=== PATIENT | male | born 1960 | race Caucasian/White ===

== ENCOUNTER 2016-08-29 00:51 | Inpatient (IN) | payer MEDICARE ==
--- NOTE | 2016-08-29 01:20 | ED ---
I, Oh,Soohjason, scribed for Jason Miles MD on 08/29/16 at 0104 . Altered Mental Status - HPI Summary HPI Summary: HPI limited due to pt being poor historian. This 56 y/o male presents to ED via ambulance from [facility] for AMS this evening. Pt reports that he was evaluated in [place] "for crazies ". PMHx includes known bipolar, and pt is reported to have been awake for "a few days". He is also reported to have had violent episodes. Pt is ambulatory in [facility] and [facility], but is poor historian. Pt is unable to provide if he has been taking his medications or not. - History Of Current Complaint Stated Complaint: XFER FROM [facility] Time Seen by Provider: 08/29/16 00:55 Hx Obtained From: Patient, EMS, Medical Records Timing: Constant Severity Initially: Moderate Severity Currently: Moderate - Allergies/Home Medications Allergies/Adverse Reactions: Allergies Allergy/AdvReac Type Severity Reaction Status Date / Time No Known Allergies Allergy Verified 06/10/14 14:41 PMH/Surg Hx/FS Hx/Imm Hx Psychiatric History: Reports: Hx Bipolar Disorder - Surgical History Surgery Procedure, Year, and Place: b/l inguinal hernia repairs, with right sided mesh - Family History Known Family History: Negative: Cardiac Disease - Social History Alcohol Use: Occasionally Hx Substance Use: No Substance Use Type: Reports: None Hx Tobacco Use: Yes Smoking Status (MU): Light Every Day Tobacco Smoker Review of Systems Negative: Fever Neurological: Other - Reported AMS Negative: Anxious, Depressed All Other Systems Reviewed And Are Negative: Yes Physical Exam Triage Information Reviewed: Yes Vital Signs On Initial Exam: Initial Vitals Temp Pulse Resp BP Pulse Ox 98.1 F 76 16 122/79 94 08/29/16 00:55 08/29/16 00:55 08/29/16 00:55 08/29/16 00:55 08/29/16 00:55 Vital Signs Reviewed: Yes Appearance: Positive: No Pain Distress, Thin Skin: Positive: Warm Head/Face: Positive: Normal Head/Face Inspection Eyes: Positive: CELY ENT: Positive: Hearing grossly normal Neck: Positive: Supple Respiratory/Lung Sounds: Positive: Clear to Auscultation, Breath Sounds Present Cardiovascular: Positive: RRR Abdomen Description: Positive: Nontender, Soft Bowel Sounds: Positive: Present Musculoskeletal: Positive: Strength/ROM Intact Neurological: Positive: Alert, Oriented to Person Place, Time Diagnostics - Vital Signs Vital Signs Temp Pulse Resp BP Pulse Ox 08/29/16 00:55 98.1 F 76 16 122/79 94 - Laboratory Lab Statement: Any lab studies that have been ordered have been reviewed, and results considered in the medical decision making process. Altered Mental Statu Course/Dx - Course Assessment/Plan: This 56 y/o male presents to ED with reported AMS from [facility] and further medical evaluation at [facility]. Pt is reported to have had violent episodes to staffs. Pt himself reports that he was being evaluated at [facility] for "crazies". Medical records and bloodwork results from [facility] indicates that pt is cleared for MHE. - Diagnoses Discharge Diagnoses: Bipolar disorder - Provider Notifications Discussed Care Of Patient With: MHU. Medically cleared for MHE at 0100 AM Discharge - Discharge Plan Condition: Stable Disposition: OTHER Discharge Disposition Comment: signed out pending mhu eval The documentation as recorded by the Paresh calle Soohyun accurately reflects the service I personally performed and the decisions made by me, Jason Miles MD.
[2016-08-29] MEDS ORDERED: Nicotine Inhaler* 10 MG AMP INH ONE (01:29)
[2016-08-29] MEDS ORDERED: Mouth Piece, Nicotine* 1 EACH CARTRIDGE ONE (01:36)
[2016-08-29] MEDS ORDERED: Al Hydrox/Mg Hydrox/Simet LIQ* 30 ML UDC PO PRN (10:40)
[2016-08-29] MEDS ORDERED: Acetaminophen TAB* 325 MG PO PRN (10:40)
[2016-08-29] MEDS ORDERED: Nicotine GUM* 2 MG PO PRN (10:40)
--- NOTE | 2016-08-29 14:27 | ED ---
Progress - Progress Note Progress Note: ADMIT TO MHU STABLE - Consult/PCP Time Called: 01:46 Course/Dx - Diagnoses Provider Diagnoses: Bipolar disorder - Provider Notifications Discussed Care Of Patient With: MHU. Medically cleared for MHE at 0100 AM
[2016-08-29] MEDS: LORazepam TAB(*) 1 MG PO PRN (22:04)
[2016-08-29] MEDS: Haloperidol TAB* 5 MG PO PRN (22:04)
[2016-08-30] MEDS ORDERED: Mouth Piece, Nicotine* 1 EACH CARTRIDGE ONE (08:52)
[2016-08-30] MEDS: Nicotine PATCH 21 MG/24 HR* PATCH TRANSDERM SCH (08:53)
[2016-08-30] MEDS: Nicotine Inhaler* 10 MG AMP INH PRN (08:53)
[2016-08-30] MEDS: Vitamin THERAPEUTIC TAB PO SCH (08:53)
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
[2016-08-30] MEDS: Nicotine Patch Removal NOTE PATCH OFF SCH (19:58)
[2016-08-30] MEDS ORDERED: QUEtiapine TAB* 100 MG PO SCH (21:00)
[2016-08-31] MEDS: Nicotine Inhaler* 10 MG AMP INH PRN (02:03)
[2016-08-31] MEDS: Vitamin THERAPEUTIC TAB PO SCH (07:34)
[2016-08-31] MEDS: Nicotine PATCH 21 MG/24 HR* PATCH TRANSDERM SCH (09:52)
--- NOTE | 2016-08-31 14:15 | PN ---
Subjective - Subjective Service Type: 60592 Hosp care 25 min moderate complexity Subjective: Owen reports sustained remission of psychotic concerns regarding Satan and bombs, but still showing some signs of continued run of psychotic illness, most concerning poor sleep. Denies any active physical complaints. Asking for discharge. Agrees to family meeting with parents, sister to inform us as to his approach toward usual level of functioning versus continued impairment. Objective - Appearance Appearance: Well Developed/Nourished Dysmorphic Features: No Hygiene: Normal Grooming: Disheveled - Behavior Psychomotor Activities: Normal Exhibits Abnormal Movement: No - Attitude and Relatedness Attitude and Relatedness: Cooperative Eye Contact: Fair - Speech Quality: Unpressured Latencies: Normal Quantity: Appropriate - Mood Patient's Decription of Mood: "Good" - Affect Observed Affect: Fair Affect Consistent with: Euthymia - Thought Process Patient's Thought Process: Coherent, Goal Directed Thought Content: No Passive Wish, No Suicidal Planning, No Homicidal Ideation, No Paranoid Ideation - Sensorium Experiencing Hallucinations: No, Sensorium is Clear Type of Hallucinations: Visual: No, Auditory: No, Command: No - Level of Consciousness Level of Consciousness: Alert Orientation: Yes Intact, Yes Orientated to Time, Yes Orientated to Place, Yes Orientated to Person - Impulse Control Impulse Control: Intact - Insight and Judgement Insight and Judgement: Poor - Group Participation Particating in Group Activities: Yes - Medication Management Medication Management Adherence: Yes Assessment - Assessment Merits Inpatient Hospitalization: For Stabilization, Consolidate Improvements, For Discharge Planning Inpatient DSM-IV Dx: Schizophrenia Clinical Impression: Mr. Bundy is a 56-year-old man who reports a history of diagnosis with schizophrenia, but by his current account zero compliance with aftercare. He reports that nevertheless for the past ten years he has been stable. He reports onset of his current psychotic decompensation following two months of sleep deprivation. I have discussed with him medication alternatives. He is averse to any medications, but has ultimately agreed to a trial of Seroquel which may be particularly helpful with regard to the sleep deprivation and may at higher doses also be effective against psychosis. I have also talked with him about the possibility of a trial of Risperdal if the Seroquel does not ultimately lead to clearing of his psychosis. 28.17 Although he reports remission of PI/delusions, he is still not sleeping well. Will ask family to come in to tell us how near to his baseline he is. Will increase Seroquel to 200 mg tonight. Plan - Plan Treatment Plan: Name: OWEN BUNDY Birthdate: 1960 [id number] Increase Seroquel to 200 mg HS. Monitor MS and safety. Encourage groups/ milieu. Aftercare to be arranged. Medications: Current Medications Acetaminophen (Tylenol Tab*) 650 mg PO Q4H PRN PRN Reason: for pain; or Temp >101 F Al Hydrox/Mg Hydrox/Simethicone (Maalox Plus*) 30 ml PO Q4H PRN PRN Reason: INDIGESTION Haloperidol (Haldol Tab*) 5 mg PO Q6H PRN PRN Reason: AGITATION Last Admin: 08/29/16 22:04 Dose: 5 mg Lorazepam (Ativan Tab(*)) 2 mg PO Q6H PRN PRN Reason: AGITATION/ANXIETY/INSOMNIA Last Admin: 08/29/16 22:04 Dose: 2 mg Multivitamins (Theragran Tab*) 1 tab PO DAILY [facility] Last Admin: 08/31/16 07:34 Dose: 1 tab Nicotine (Nicotine Inhaler*) 10 mg INH Q2H PRN PRN Reason: CRAVING Last Admin: 08/31/16 02:03 Dose: 10 mg Nicotine (Nicotine Patch 21 Mg/24 Hr*) 1 patch TRANSDERM DAILY@0800 [facility] Last Admin: 08/31/16 09:52 Dose: Not Given Nicotine Polacrilex (Nicotine Gum*) 2 mg PO Q2H PRN PRN Reason: CRAVING Pharmacy Profile Note (Nicotine Patch Removal Note*) 1 note PATCH OFF 1999 [facility] Last Admin: 08/30/16 19:58 Dose: Not Given Quetiapine Fumarate (Seroquel Tab*) 100 mg PO BEDTIME [facility] Last Admin: 08/30/16 19:49 Dose: 100 mg - Discharge Plan Discharge Plan: Outpatient Follow Up
[2016-08-31] MEDS: QUEtiapine TAB* 100 MG PO SCH (20:41)
[2016-08-31] MEDS: Nicotine Patch Removal NOTE PATCH OFF SCH (20:41)
[2016-09-01] MEDS: Vitamin THERAPEUTIC TAB PO SCH (09:00)
[2016-09-01] MEDS: Nicotine PATCH 21 MG/24 HR* PATCH TRANSDERM SCH (09:01)
[2016-09-01] MEDS ORDERED: Mouth Piece, Nicotine* 1 EACH CARTRIDGE ONE (11:54)
[2016-09-01] MEDS: Nicotine Inhaler* 10 MG AMP INH PRN ×3 (11:55→19:38)
--- NOTE | 2016-09-01 12:07 | PN ---
Subjective - Subjective Service Type: 76981 Hosp care 35 min high complexity Subjective: Family meeting held with patient, social science instructor Ms Wren, patient's parents, and his [id number] Lorena. Family members expressed concern that given degree of psychosis prior to admission, and their experience with relapse in another family member after what they felt was too brief a hospitalization for treatment of rigoberto, that discharge today would be premature. Cristopher agreed, reluctantly, that he would benefit from staying through the weekend as dose of Seroquel is increased to usual target dose for treatment of rigoberto, 300 mg daily , and for further stabilization with close observation for sustained remission of delusional psychosis and insomnia. 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 Objective - Appearance Appearance: Healthy Appearing Dysmorphic Features: No Hygiene: Normal Grooming: Fairly Well Kept - Behavior Psychomotor Activities: Normal Exhibits Abnormal Movement: No - Attitude and Relatedness Attitude and Relatedness: Well Related Eye Contact: Good - Speech Quality: Unpressured Latencies: Normal Quantity: Appropriate - Mood Patient's Decription of Mood: "Good" - Affect Observed Affect: Good Affect Consistent with: Euthymia - Thought Process Patient's Thought Process: Coherent, Goal Directed Thought Content: No Passive Wish, No Suicidal Planning, No Homicidal Ideation, No Paranoid Ideation - Sensorium Experiencing Hallucinations: No, Sensorium is Clear Type of Hallucinations: Visual: No, Auditory: No, Command: No - Level of Consciousness Level of Consciousness: Alert Orientation: Yes Intact, Yes Orientated to Time, Yes Orientated to Place, Yes Orientated to Person - Impulse Control Impulse Control: Intact - Insight and Judgement Insight and Judgement: Fair - Group Participation Particating in Group Activities: Yes Group Participation Comments: about half of documented groups - Medication Management Medication Management Adherence: Yes Assessment - Assessment Merits Inpatient Hospitalization: For Stabilization, For Ongoing Evaluation, Consolidate Improvements, For Discharge Planning, Pending Safe DC Plan Inpatient DSM-IV Dx: Schizophrenia Clinical Impression: Mr. Bundy is a 56-year-old man who reports a history of diagnosis with schizophrenia, but by his current account zero compliance with aftercare. He reports that nevertheless for the past ten years he has been stable. He reports onset of his current psychotic decompensation following two months of sleep deprivation. I have discussed with him medication alternatives. He is averse to any medications, but has ultimately agreed to a trial of Seroquel which may be particularly helpful with regard to the sleep deprivation and may at higher doses also be effective against psychosis. I have also talked with him about the possibility of a trial of Risperdal if the Seroquel does not ultimately lead to clearing of his psychosis. 2.8.17 Although he reports remission of PI/delusions, he is still not sleeping well. Will ask family to come in to tell us how near to his baseline he is. Will increase Seroquel to 200 mg tonight. 17 Conclusion of family meeting was that Cristopher would stay through weekend to consolidate gains prior to planned Monday discharge, with increased dose Seroquel to target for treatment of rigoberto, 300 mg, tonight. Plan - Plan Treatment Plan: Name: OWEN BUNDY Birthdate: 1960 [id number] Increase Seroquel to 300 mg HS. Monitor MS and safety. Encourage groups/ milieu. [facility]care at [facility] with day programming. Medications: Current Medications Acetaminophen (Tylenol Tab*) 650 mg PO Q4H PRN PRN Reason: for pain; or Temp >101 F Al Hydrox/Mg Hydrox/Simethicone (Maalox Plus*) 30 ml PO Q4H PRN PRN Reason: INDIGESTION Haloperidol (Haldol Tab*) 5 mg PO Q6H PRN PRN Reason: AGITATION Last Admin: 08/29/16 22:04 Dose: 5 mg Lorazepam (Ativan Tab(*)) 2 mg PO Q6H PRN PRN Reason: AGITATION/ANXIETY/INSOMNIA Last Admin: 08/29/16 22:04 Dose: 2 mg Multivitamins (Theragran Tab*) 1 tab PO DAILY [facility] Last Admin: 09/01/16 09:00 Dose: 1 tab Nicotine (Nicotine Inhaler*) 10 mg INH Q2H PRN PRN Reason: CRAVING Last Admin: 09/01/16 11:55 Dose: 10 mg Nicotine (Nicotine Patch 21 Mg/24 Hr*) 1 patch TRANSDERM DAILY@0800 [facility] Last Admin: 09/01/16 09:01 Dose: Not Given Nicotine Polacrilex (Nicotine Gum*) 2 mg PO Q2H PRN PRN Reason: CRAVING Pharmacy Profile Note (Nicotine Patch Removal Note*) 1 note PATCH OFF 1999 [facility] Last Admin: 08/31/16 20:41 Dose: Not Given Quetiapine Fumarate (Seroquel Tab*) 200 mg PO BEDTIME [facility] Last Admin: 08/31/16 20:41 Dose: 200 mg - Discharge Plan Discharge Plan: Outpatient Follow Up Outpatient Program: [facility], including day program
[2016-09-01] MEDS: QUEtiapine TAB* 100 MG PO SCH ×2 (20:11→20:35)
[2016-09-01] MEDS: Nicotine Patch Removal NOTE PATCH OFF SCH (20:12)
[2016-09-02] MEDS: Nicotine Inhaler* 10 MG AMP INH PRN (07:53)
[2016-09-02] MEDS: Vitamin THERAPEUTIC TAB PO SCH (08:39)
--- NOTE | 2016-09-02 08:44 | PN ---
Subjective - Subjective Service Type: 14670 Hosp care 15 min low complexity Subjective: Owen reports with a brief pause to his response that he agrees with stabilizing more fully until planned Monday discharge from the florid psychosis that indicated need for hospitaliztion. He denies any hallucinations, paranoia , dangerous intent/plan. He does present with some odd tonalities to his report of not getting his shoes back and not having his ID band, the latter point he seems to bring up to imply he is not supposed to be a patient here. Objective - Appearance Appearance: Healthy Appearing Dysmorphic Features: No Hygiene: Normal Grooming: Fairly Well Kept - Behavior Psychomotor Activities: Normal Exhibits Abnormal Movement: No - Attitude and Relatedness Attitude and Relatedness: Cooperative Eye Contact: Good - Speech Quality: Unpressured Latencies: Normal Quantity: Terse - Mood Patient's Decription of Mood: "Great" - Affect Observed Affect: Constricted Affect Consistent with: Euthymia - Thought Process Patient's Thought Process: Coherent, Goal Directed, Impoverished Thought Content: No Passive Wish, No Suicidal Planning, No Homicidal Ideation, No Paranoid Ideation - although emotional tone seems to indicate paranoia - Sensorium Experiencing Hallucinations: No, Sensorium is Clear Type of Hallucinations: Visual: No, Auditory: No, Command: No - Level of Consciousness Level of Consciousness: Alert Orientation: Yes Intact, Yes Orientated to Time, Yes Orientated to Place, Yes Orientated to Person - Impulse Control Impulse Control: Intact - Insight and Judgement Insight and Judgement: Impaired - Group Participation Particating in Group Activities: Yes - Medication Management Medication Management Adherence: Yes Assessment - Assessment Merits Inpatient Hospitalization: Consolidate Improvements, For Discharge Planning Inpatient DSM-IV Dx: Schizophrenia Clinical Impression: Mr. Bundy is a 56-year-old man who reports a history of diagnosis with schizophrenia, but by his current account zero compliance with aftercare. He reports that nevertheless for the past ten years he has been stable. He reports onset of his current psychotic decompensation following two months of sleep deprivation. I have discussed with him medication alternatives. He is averse to any medications, but has ultimately agreed to a trial of Seroquel which may be particularly helpful with regard to the sleep deprivation and may at higher doses also be effective against psychosis. I have also talked with him about the possibility of a trial of Risperdal if the Seroquel does not ultimately lead to clearing of his psychosis. 2.8.17 Although he reports remission of PI/delusions, he is still not sleeping well. Will ask family to come in to tell us how near to his baseline he is. Will increase Seroquel to 200 mg tonight. 217 Conclusion of family meeting was that Cristopher would stay through weekend to consolidate gains prior to planned Monday discharge, with increased dose Seroquel to target for treatment of rigoberto, 300 mg, tonight. 09.02.16 Plan for Monday discharge after continued observation over weekend for solidifying gains against florid paranoid psychosis and insomnia preceding admission. Plan - Plan Treatment Plan: Name: OWEN BUNDY Birthdate: 1960 [id number] Continue Seroquel at 300 mg HS. Monitor MS and safety. Encourage groups/ milieu. [facility]care at [facility] with day programming. Medications: Current Medications Acetaminophen (Tylenol Tab*) 650 mg PO Q4H PRN PRN Reason: for pain; or Temp >101 F Al Hydrox/Mg Hydrox/Simethicone (Maalox Plus*) 30 ml PO Q4H PRN PRN Reason: INDIGESTION Haloperidol (Haldol Tab*) 5 mg PO Q6H PRN PRN Reason: AGITATION Last Admin: 08/29/16 22:04 Dose: 5 mg Lorazepam (Ativan Tab(*)) 2 mg PO Q6H PRN PRN Reason: AGITATION/ANXIETY/INSOMNIA Last Admin: 08/29/16 22:04 Dose: 2 mg Multivitamins (Theragran Tab*) 1 tab PO DAILY [facility] Last Admin: 09/01/16 09:00 Dose: 1 tab Nicotine (Nicotine Inhaler*) 10 mg INH Q2H PRN PRN Reason: CRAVING Last Admin: 09/02/16 07:53 Dose: 10 mg Nicotine (Nicotine Patch 21 Mg/24 Hr*) 1 patch TRANSDERM DAILY@0800 [facility] Last Admin: 09/01/16 09:01 Dose: Not Given Nicotine Polacrilex (Nicotine Gum*) 2 mg PO Q2H PRN PRN Reason: CRAVING Pharmacy Profile Note (Nicotine Patch Removal Note*) 1 note PATCH OFF 1999 [facility] Last Admin: 09/01/16 20:12 Dose: Not Given Quetiapine Fumarate (Seroquel Tab*) 200 mg PO BEDTIME [facility] Last Admin: 09/01/16 20:35 Dose: 200 mg - Discharge Plan Discharge Plan: Outpatient Follow Up
[2016-09-02] MEDS: Nicotine PATCH 21 MG/24 HR* PATCH TRANSDERM SCH (09:45)
[2016-09-02] MEDS: Haloperidol TAB* 5 MG PO PRN (15:37)
[2016-09-02] MEDS: LORazepam TAB(*) 1 MG PO PRN (18:20)
[2016-09-02] MEDS: Nicotine Patch Removal NOTE PATCH OFF SCH (19:33)
[2016-09-02] MEDS: QUEtiapine TAB* 100 MG PO SCH (20:35)
[2016-09-03] MEDS: Nicotine PATCH 21 MG/24 HR* PATCH TRANSDERM SCH (09:50)
[2016-09-03] MEDS: Vitamin THERAPEUTIC TAB PO SCH (09:51)
--- NOTE | 2016-09-03 11:44 | PN ---
Subjective - Subjective Service Type: 97232 Hosp care 25 min moderate complexity Subjective: Owen reported today that "I need a cigarette!", which seems to be the primary motivation toward discharge urgently. He also reported feeling frustrated at the outcome of the family meeting in which we decided it made good sense to observe him over the weekend for stability in recovery from an episode of florid psychosis just 2 days earlier. He denied having any physical complaints. He reluctantly agreed he would work to make the most of his remaining 48 hours on the unit. Objective - Appearance Appearance: Healthy Appearing, Thin Framed Dysmorphic Features: No Hygiene: Normal Grooming: Fairly Well Kept - Behavior Psychomotor Activities: Normal Exhibits Abnormal Movement: No - Attitude and Relatedness Attitude and Relatedness: Cooperative Eye Contact: Fair - Speech Quality: Unpressured Latencies: Normal Quantity: Terse - Mood Patient's Decription of Mood: "Good" - Affect Observed Affect: Tense Affect Consistent with: Dysphoria - Thought Process Patient's Thought Process: Coherent, Goal Directed Thought Content: No Passive Wish, No Suicidal Planning, No Homicidal Ideation, No Paranoid Ideation - Sensorium Experiencing Hallucinations: No, Sensorium is Clear Type of Hallucinations: Visual: No, Auditory: No, Command: No - Level of Consciousness Level of Consciousness: Alert Orientation: Yes Intact, Yes Orientated to Time, Yes Orientated to Place, Yes Orientated to Person - Impulse Control Impulse Control: Intact - Insight and Judgement Insight and Judgement: Poor - Group Participation Particating in Group Activities: Yes Group Participation Comments: but left in middle of group today because unable to focus - Medication Management Medication Management Adherence: Yes Assessment - Assessment Merits Inpatient Hospitalization: For Stabilization, Consolidate Improvements, For Discharge Planning Inpatient DSM-IV Dx: Schizophrenia Clinical Impression: Mr. Bundy is a 56-year-old man who reports a history of diagnosis with schizophrenia, but by his current account zero compliance with aftercare. He reports that nevertheless for the past ten years he has been stable. He reports onset of his current psychotic decompensation following two months of sleep deprivation. I have discussed with him medication alternatives. He is averse to any medications, but has ultimately agreed to a trial of Seroquel which may be particularly helpful with regard to the sleep deprivation and may at higher doses also be effective against psychosis. I have also talked with him about the possibility of a trial of Risperdal if the Seroquel does not ultimately lead to clearing of his psychosis. 2.8.17 Although he reports remission of PI/delusions, he is still not sleeping well. Will ask family to come in to tell us how near to his baseline he is. Will increase Seroquel to 200 mg tonight. 2.9.17 Conclusion of family meeting was that Cristopher would stay through weekend to consolidate gains prior to planned Monday discharge, with increased dose Seroquel to target for treatment of rigoberto, 300 mg, tonight. 2..17 Plan for Monday discharge after continued observation over weekend for solidifying gains against florid paranoid psychosis and insomnia preceding admission. 2..17 Reported today that he is seeking discharge with urgency motivated by desire to smoke. Has had difficulty concentrating in group. He is angry but in good behavioral control and in fact reasonable in stating his frustration. Still planning toward Monday discharge if observation through the weekend indicates sustained remission of psychosis with good sleep. Plan - Plan Treatment Plan: Name: OWEN BUNDY Birthdate: 1960 [id number] Continue Seroquel at 300 mg HS. Monitor MS and safety. Encourage groups/ milieu. Aftercare at [facility] with day programming. Medications: Current Medications Acetaminophen (Tylenol Tab*) 650 mg PO Q4H PRN PRN Reason: for pain; or Temp >101 F Al Hydrox/Mg Hydrox/Simethicone (Maalox Plus*) 30 ml PO Q4H PRN PRN Reason: INDIGESTION Haloperidol (Haldol Tab*) 5 mg PO Q6H PRN PRN Reason: AGITATION Last Admin: 09/02/16 15:37 Dose: 5 mg Lorazepam (Ativan Tab(*)) 2 mg PO Q6H PRN PRN Reason: AGITATION/ANXIETY/INSOMNIA Last Admin: 09/02/16 18:20 Dose: 2 mg Multivitamins (Theragran Tab*) 1 tab PO DAILY [facility] Last Admin: 09/03/16 09:51 Dose: 1 tab Nicotine (Nicotine Inhaler*) 10 mg INH Q2H PRN PRN Reason: CRAVING Last Admin: 09/02/16 07:53 Dose: 10 mg Nicotine (Nicotine Patch 21 Mg/24 Hr*) 1 patch TRANSDERM DAILY@0800 [facility] Last Admin: 09/03/16 09:50 Dose: Not Given Nicotine Polacrilex (Nicotine Gum*) 2 mg PO Q2H PRN PRN Reason: CRAVING Pharmacy Profile Note (Nicotine Patch Removal Note*) 1 note PATCH OFF 1999 [facility] Last Admin: 09/02/16 19:33 Dose: Not Given Quetiapine Fumarate (Seroquel Tab*) 200 mg PO BEDTIME [facility] Last Admin: 09/02/16 20:35 Dose: 200 mg - Discharge Plan Discharge Plan: Outpatient Follow Up
[2016-09-03] MEDS ORDERED: Mouth Piece, Nicotine* 1 EACH CARTRIDGE ONE (13:49)
[2016-09-03] MEDS: Nicotine Inhaler* 10 MG AMP INH PRN ×3 (13:50→22:39)
[2016-09-03] MEDS: Nicotine Patch Removal NOTE PATCH OFF SCH (20:48)
[2016-09-03] MEDS: QUEtiapine TAB* 100 MG PO SCH (21:07)
[2016-09-04] MEDS: Nicotine Inhaler* 10 MG AMP INH PRN ×8 (02:11→22:26)
[2016-09-04] MEDS: LORazepam TAB(*) 1 MG PO PRN ×2 (02:25→23:57)
[2016-09-04] MEDS: Vitamin THERAPEUTIC TAB PO SCH (09:35)
[2016-09-04] MEDS: Nicotine PATCH 21 MG/24 HR* PATCH TRANSDERM SCH (09:36)
[2016-09-04] MEDS: QUEtiapine TAB* 100 MG PO SCH (20:00)
[2016-09-04] MEDS: Nicotine Patch Removal NOTE PATCH OFF SCH (21:14)
[2016-09-05 08:07] VITALS: BP 118/65
[2016-09-05] MEDS: Nicotine Inhaler* 10 MG AMP INH PRN ×2 (08:14→10:35)
[2016-09-05] MEDS ORDERED: Mouth Piece, Nicotine* 1 EACH CARTRIDGE ONE (08:14)
[2016-09-05] MEDS: Nicotine PATCH 21 MG/24 HR* PATCH TRANSDERM SCH (08:14)
[2016-09-05] MEDS: Vitamin THERAPEUTIC TAB PO SCH (08:14)
--- NOTE | 2016-09-05 10:24 | DS ---
Subjective - Subjective Service Types: [id number] [facility] Day Mgmt simple under 30 min Discharge Date: 09/05/16 Subjective: Pedro reports full sustained remission of the symptoms of paranoid psychosis that led to his admission: he no longer has concerns about bombs or Satan. He is primarily interested in getting home so that he can bowl with friends. He is unsure if he still has a job at the [employer]. He denies any active psychosis, dangerous intent or plan, or mood disturbance, reporting that his mood is very good, and he is looking forward to planned activities. Objective - Appearance Appearance: Healthy Appearing, Thin Framed Dysmorphic Features: No Hygiene: Normal Grooming: Fairly Well Kept - Behavior Psychomotor Activities: Normal Exhibits Abnormal Movement: No - Attitude and Relatedness Attitude and Relatedness: Cooperative Eye Contact: Good - Speech Quality: Unpressured Latencies: Normal Quantity: Appropriate - Mood Patient's Decription of Mood: "Good" - Affect Observed Affect: Fair Affect Consistent with: Euthymia - Thought Process Patient's Thought Process: Coherent, Goal Directed Thought Content: No Passive Wish, No Suicidal Planning, No Homicidal Ideation, No Paranoid Ideation - Sensorium Experiencing Hallucinations: No, Sensorium is Clear Type of Hallucinations: Visual: No, Auditory: No, Command: No - Level of Consciousness Level of Consciousness: Alert Orientation: Yes Intact, Yes Orientated to Time, Yes Orientated to Place, Yes Orientated to Person - Impulse Control Impulse Control: Intact - Insight and Judgement Insight and Judgement: Fair - Group Participation Particating in Group Activities: Yes Group Participation Comments: but only large groups like evening and community meeting - Medication Management Medication Management Adherence: Partial Treatment Course & Assessment Clinical Course & Impression: Mr. Garcia is a 56-year-old man who reports a history of diagnosis with schizophrenia, but by his current account zero compliance with aftercare. He reports that nevertheless for the past ten years he has been stable. He reports onset of his current psychotic decompensation following two months of sleep deprivation. I have discussed with him medication alternatives. He is averse to any medications, but has ultimately agreed to a trial of Seroquel which may be particularly helpful with regard to the sleep deprivation and may at higher doses also be effective against psychosis. 2.8.17 Although he reports remission of PI/delusions, he is still not sleeping well. Will ask family to come in to tell us how near to his baseline he is. Will increase Seroquel to 200 mg tonight. 09.01.16 Conclusion of family meeting was that Cristopher would stay through weekend to consolidate gains prior to planned Monday discharge, with increased dose Seroquel to target for treatment of rigoberto, 300 mg, tonight. 09.03.16 Reported today that he is seeking discharge with urgency motivated by desire to smoke. Has had difficulty concentrating in group. He is angry but in good behavioral control and in fact reasonable in stating his frustration. Still planning toward Monday discharge if observation through the weekend indicates sustained remission of psychosis with good sleep. 09.05.16 Pedro is cleared for discharge. Target symptoms of paranoia and insomnia have resolved. He reports sustained remission of paranoid concerns about bombs and Satan. He has been sleeping about 5 - 6 hours nightly, which he reports is a marked improvement over the less than 2 hours nightly prior to admission. He has at no time during this admission stated any intent or plan to harm himself or others. He did push his father when concerned about a bomb in his sister's car, but the concern about bombs has remitted and he states he has no violent intentions now that his psychotic break has resolved. He did comply with medications partially, choosing to take only 200 mg of the 300 mg Seroquel that was offered to him. He agrees to continue to take 200 mg Seroquel nightly after discharge. Aftercare has been arranged at [facility] with intake appointment today at 2 pm. He is bright and future-oriented, looking forward to bowling with friends. He does not wish to stop smoking despite my recommendation that he stop. His family will be picking him up to get him to aftercare this afternoon. Merits Inpatient Hospitalization: No Clear for Discharge: Adequate Clinical Respons, Acceptable Safety Profile, Low Utility of Inpt Care Inpatient DSM-IV Dx: Schizophrenia - [place] III Medical Illness: no active issues - [place] IV Stressors: limited finances, no car Family: supportive family Primary Support Group: family - [place] V EUH-Kzctep-Ciafm: 55 Estimate of Highest-Past Year: 60 Discharge Planning - Discharge Planning Discharge Plan: Outpatient Follow Up Outpatient Program: [facility] Recommendations for Continuing Care: Medication Management, Psychotherapy, Routine Metabolic Monitoring Medications: Quetiapine Fumarate (Seroquel Tab*) 200 mg PO BEDTIME [facility] Last Admin: 09/04/16 20:00 Dose: 200 mg Discharge Planning: Prescriptions provided for discharge [x] Yes [] No Follow up care details as per social work arrangements. Patient response to discharge plan: [x] eager for discharge [x] agreeable with discharge plan [] ambivalent about discharge [] disagrees with discharge today
== END 2016-09-05 11:00 | disposition home or self-care (01) | DRG 885 ==
LOC: ED 00:51 → BSU 14:50
PROVIDERS: ADMIT Psychiatry & Neurology Psychiatry; ATTEND Psychiatry & Neurology Psychiatry
DX: F20.0 Paranoid schizophrenia (principal); F17.210 Nicotine dependence, cigarettes, uncomplicated
CPT/HCPCS: 99222; 99231; 99232; 99233; 99238; A9270-GY

== ENCOUNTER 2016-09-08 01:37 | Inpatient (IN) | payer MEDICARE ==
[2016-09-08] MEDS ORDERED: QUEtiapine TAB* 100 MG ONE (03:14)
[2016-09-08] MEDS ORDERED: Nicotine Inhaler* 10 MG AMP ONE (03:25)
[2016-09-08] MEDS ORDERED: Mouth Piece, Nicotine* 1 EACH CARTRIDGE ONE (03:25)
[2016-09-08 03:32] LABS: Acetaminophen < 15 mcg/mL; Alcohol < 10 mg/dL (<10); Hematocrit 44 % (42-52); Hemoglobin 14.7 g/dl (14.0-18.0); Mean Corpuscular HGB Conc 33 g/dl (31-36); Mean Corpuscular Hemoglobin 34 pg (27-31); Mean Corpuscular Volume 102 fL (80-94); Mean Platelet Volume 7 um3 (7.4-10.4); Red Blood Count 4.31 10^6/ul (4.0-5.4); Red Cell Distribution Width 14 % (10.5-15); Salicylate < 2.50 mg/dL (<30); White Blood Count 5.4 10^3/ul (3.5-10.8)
[2016-09-08 03:33] LABS: ALT 23 U/L (7-52); AST 44 U/L (13-39); Albumin 4.7 g/dL (3.2-5.2); Alkaline Phosphatase 63 U/L (34-104); Anion Gap 6 mmol/L (2-11); Blood Urea Nitrogen 18 mg/dL (6-24); CO2 Carbon Dioxide 28 mmol/L (22-32); Calcium 9.8 mg/dL (8.6-10.3); Chloride 101 mmol/L (101-111); EGFR African American 99.4 (>60); EGFR Non-African American 77.3 (>60); Globulin 2.7 g/dL (2-4); Glucose 92 mg/dL (70-100); Potassium 4.3 mmol/L (3.5-5.0); Sodium 135 mmol/L (133-145); Total Protein 7.4 g/dL (6.4-8.9)
[2016-09-08 03:35] LABS: TSH (Thyroid Stimulating Horm) 8.68 mcIU/mL (0.34-5.60)
--- NOTE | 2016-09-08 05:29 | ED ---
Latrell Pennington Billy, scribed for Jason Miles MD on 09/08/16 at 0149 . Psychiatric Complaint - HPI Summary HPI Summary: Patient is a 56 year-old male coming to [facility] for M[facility]. He was recently discharged with psychosis several days ago, but he has not been taking his medications. Per family, patient is not behaving normally. - History Of Current Complaint Chief Complaint: EDMentalHealth Time Seen by Provider: 09/08/16 01:41 Hx Obtained From: Family/Operations Support Specialist Onset/Duration: Gradual Onset, Lasting Days, Still Present Timing: Constant Severity Initially: Moderate Severity Currently: Moderate Aggravating Factor(s): Medication Non-compliance Alleviating Factor(s): Nothing Associated Signs And Symptoms: Positive: Paranoid Behavior Related History: Positive For: Prior Psychiatric Issues - Allergies/Home Medications Allergies/Adverse Reactions: Allergies Allergy/AdvReac Type Severity Reaction Status Date / Time No Known Allergies Allergy Verified 08/29/16 23:13 PMH/Surg Hx/FS Hx/Imm Hx Psychiatric History: Reports: Hx Inpatient Treatment, Hx Community Mental Health Tx, Hx Bipolar Disorder - Surgical History Surgery Procedure, Year, and Place: b/l inguinal hernia repairs, with right sided mesh Infectious Disease History: Denies: Traveled Outside the [place] in Last 30 Days - Family History Known Family History: Negative: Cardiac Disease - Social History Alcohol Use: Daily Hx Substance Use: No Substance Use Type: Reports: None Hx Tobacco Use: Yes Smoking Status (MU): Light Every Day Tobacco Smoker Type: Cigarettes Amount Used/How Often: less than 10 cigs per day for the last 30 days. Have You Smoked in the Last Year: Yes Review of Systems Negative: Fever Positive: Other - psychosis All Other Systems Reviewed And Are Negative: Yes Physical Exam Triage Information Reviewed: Yes Vital Signs On Initial Exam: Initial Vitals Temp Pulse Resp BP Pulse Ox 98.2 F 78 12 134/78 94 09/08/16 01:56 09/08/16 01:56 09/08/16 01:56 09/08/16 01:56 09/08/16 01:56 Vital Signs Reviewed: Yes Appearance: Positive: Well-Appearing Skin: Positive: Warm Head/Face: Positive: Normal Head/Face Inspection Respiratory/Lung Sounds: Positive: Breath Sounds Present Abdomen Description: Positive: Nontender, Soft Neurological: Positive: Normal Gait Diagnostics - Vital Signs Vital Signs Temp Pulse Resp BP Pulse Ox 09/08/16 01:56 98.2 F 78 12 134/78 94 - Laboratory Lab Results: Lab Results 09/08/16 09/08/16 Range/Units 02:10 02:10 WBC 5.4 (3.5-10.8) 10^3/ul RBC 4.31 (4.0-5.4) 10^6/ul Hgb 14.7 (14.0-18.0) g/dl Hct 44 (42-52) % MCV 102 H (80-94) fL MCH 34 H (27-31) pg MCHC 33 (31-36) g/dl RDW 14 (10.5-15) % Plt Count 208 (150-450) 10^3/ul MPV 7 L (7.4-10.4) um3 Neut % (Auto) 58.5 (38-83) % Lymph % (Auto) 21.7 L (25-47) % Dupage % (Auto) 17.4 H (1-9) % Eos % (Auto) 1.8 (0-6) % Baso % (Auto) 0.6 (0-2) % Absolute Neuts (auto) 3.2 (1.5-7.7) 10^3/ul Absolute Lymphs (auto) 1.2 (1.0-4.8) 10^3/ul Absolute Monos (auto) 0.9 H (0-0.8) 10^3/ul Absolute Eos (auto) 0.1 (0-0.6) 10^3/ul Absolute Basos (auto) 0 (0-0.2) 10^3/ul Absolute Nucleated RBC 0 10^3/ul Nucleated RBC % 0 Sodium 135 (133-145) mmol/L Potassium 4.3 (3.5-5.0) mmol/L Chloride 101 (101-111) mmol/L Carbon Dioxide 28 (22-32) mmol/L Anion Gap 6 (2-11) mmol/L BUN 18 (6-24) mg/dL Creatinine 1.00 (0.67-1.17) mg/dL Est GFR ( Amer) 99.4 (>60) Est GFR (Non-Af Amer) 77.3 (>60) BUN/Creatinine Ratio 18.0 (8-20) Glucose 92 (70-100) mg/dL Calcium 9.8 (8.6-10.3) mg/dL Total Bilirubin 0.80 (0.2-1.0) mg/dL AST 44 H (13-39) U/L ALT 23 (7-52) U/L Alkaline Phosphatase 63 (34-104) U/L Total Protein 7.4 (6.4-8.9) g/dL Albumin 4.7 (3.2-5.2) g/dL Globulin 2.7 (2-4) g/dL Albumin/Globulin Ratio 1.7 (1-3) TSH 8.68 H (0.34-5.60) mcIU/mL Salicylates < 2.50 (<30) mg/dL Acetaminophen < 15 mcg/mL Serum Alcohol < 10 (<10) mg/dL Result Diagrams: 09/08/16 02:10 09/08/16 02:10 Lab Statement: Any lab studies that have been ordered have been reviewed, and results considered in the medical decision making process. Course/Dx - Differential Dx/Clinical Impression Provider Diagnosis: Psychosis - Physician Notifications Instructed by Provider To: Admit As Inpatient Discharge - Discharge Plan Condition: Guarded Disposition: ADMITTED TO [facility] documentation as recorded by the Latrell calle Billy accurately reflects the service I personally performed and the decisions made by , Jason Miles MD.
[2016-09-08] MEDS ORDERED: Al Hydrox/Mg Hydrox/Simet LIQ* 30 ML UDC PO PRN (06:02)
[2016-09-08] MEDS ORDERED: Acetaminophen TAB* 325 MG PO PRN (06:02)
[2016-09-08] MEDS ORDERED: Mouth Piece, Nicotine* 1 EACH CARTRIDGE INH SCH (06:02)
[2016-09-08] MEDS ORDERED: LORazepam INJ* 2 MG/ML 1 ML VIAL ONE (06:53)
[2016-09-08] MEDS ORDERED: diPHENhydraMINE IV* 50 MG/ML 1 ml VIAL (BENADRYL) ONE (06:53)
[2016-09-08] MEDS ORDERED: Haloperidol INJ IV/IM* 5 MG/ML AMP ONE (06:53)
[2016-09-08] MEDS ORDERED: Haloperidol INJ IV/IM* 5 MG/ML AMP IM ONE (07:00)
[2016-09-08] MEDS ORDERED: diPHENhydraMINE IV* 50 MG/ML 1 ml VIAL (BENADRYL) IM ONE (07:00)
[2016-09-08] MEDS ORDERED: LORazepam INJ* 2 MG/ML 1 ML VIAL IM ONE (07:00)
[2016-09-08] MEDS: Vitamin THERAPEUTIC TAB PO SCH (13:51)
--- NOTE | 2016-09-08 15:20 | HP ---
History & Physical Patient: OWEN BUNDY /Age: 11 1960 56 Medical Record#: [id number] Admission Date: 09/08/16 Provider: Matt Gamboa MD RE-ADMISSION HISTORY AND PHYSICAL DATE OF RE-ADMISSION: 09/08/2016. DATE OF EVALUATION: 09/08/2016. IDENTIFICATION: Mr. Bundy is a 56-year-old man who is known to the unit from prior admission here, just discharged three days ago. He reportedly did not comply with aftercare plans, did not take Seroquel and has returned with report of bizarre behavior in his family's home. HISTORY OF PRESENT ILLNESS: Information was gathered from interview of the patient and from review of the electronic medical record. For full detail of psychiatric history, medical history, and other more chronic issues, please refer to the history and physical note from his admission 2016. This will be an update of his current presentation and mental status, as well as review of current medical status. Mr. Bundy is uncooperative with intake interview. He states that it is "none of your business" what has occurred prior to returning to the hospital. He had an episode of agitation this morning, trying the doors repeatedly, and demonstrating agitation that raised concern for acute safety on the unit requiring IM administration of 5 mg of Haldol, 2 mg of Ativan, and 50 mg of Benadryl. He did respond well to that administration with sedation and slept through much of the day. I spoke with him toward the middle to end of the day and he was still uncooperative. He did state that it would be fine for me to speak with his parents and with his brother and [id number]. I did speak with his father, Maury. His father, Maury, reported that he had been behaving bizarrely, had been walking about his brother Rom and [id number] Lali's home , and speaking to himself, had been frightening in his demeanor at times to them , and had done other things reported elsewhere in the record such as taking the door off a dryer for unknown reasons. Due to this agitation, property destruction and demeanor or threat, his brother got him into the hospital and he has been admitted for safety assessment and treatment. He is not willing at this point to give report of internal experience of psychosis, but there are clear signs that this was occurring prior to admission. MENTAL STATUS EXAMINATION: This is a man of 56, looking about that age with adequate grooming and hygiene. He does make intermittent eye contact. He has speech of regular, rate, rhythm and volume. He has a guarded presentation. He reports his mood as "pretty good," but with incongruently angry, sullen affect. He is alert and oriented to person and place. He denies any auditory or visual hallucinations or paranoid ideation. He denies any suicidal or homicidal ideation. His reports, however, are dismissive and of marginal reliability. REVIEW OF SYSTEMS: Negative for chest pain, shortness of breath, nausea, vomiting, constipation, diarrhea, pain, rash, dizziness, blurred vision, or request to report any other symptoms not explicitly asked after. PHYSICAL EXAMINATION He has refused a physical examination, stating that he was examined in the emergency department and does not require re-examination as he has no current physical complaints. ASSESSMENT AND PLAN: Mr. Bundy is a 56-year-old man with a reported history of diagnosis of schizophrenia, but lapsed from treatment for many years with stability in the community. He did have destabilization resulting in hospitalization at the end of the first week of this month with report of thoughts that Torrey was doing evil things around him and that bombs were being placed in vehicles and so on, resulting in pushing his father down and other concerning behaviors for the safety of others around him, as well as himself given his psychotic process limiting his ability to provide for his own self- care. On this occasion, we are told that he was behaving similarly in the community with signs of psychosis and inadequate self- care and so he has been admitted for treatment in this safe setting. We will be resuming his Seroquel 200 mg at bedtime for now, but will be discussing with him alternative medications that might be more effective such as Zyprexa or Invega; Invega also giving the option of an injectable form which would be improving compliance likelihood. He has been afforded the opportunity to engage in the therapeutic milieu and groups, but up to now has been resistant to engaging in that. He is on 939 status. He is on 15 minute checks with full code status. We will be gathering further collateral from his brother and [id number] toward the goal of better understanding of how he has been behaving in the community, but it seems clear that the task at hand is to help him clear of recurrent psychosis due to med noncompliance. DIAGNOSIS: Schizophrenia. [id number] #: [id number] Matt Gamboa MD Dictated Date/Time: 09/08/16 1423 Transcribed Date/Time 09/08/16 1510 Copy to: CC: Matt Gamboa MD [facility]
[2016-09-08] MEDS: QUEtiapine TAB* 100 MG PO SCH (20:42)
[2016-09-09] MEDS: Nicotine Inhaler* 10 MG AMP INH PRN ×8 (04:35→19:49)
[2016-09-09] MEDS: Vitamin THERAPEUTIC TAB PO SCH (08:42)
--- NOTE | 2016-09-09 08:47 | PN ---
Subjective - Subjective Service Type: 52191 Hosp care 15 min low complexity Subjective: Owen asked again today to be discharged, saying he is fine. He says behaviors witnessed by family (pacing, self-dialoguing, tearing door off dryer, etc) were because he was venting frustration and not a sign of disorganized thought and behavior or psychotic process. No physical complaints. Objective - Appearance Appearance: Healthy Appearing Dysmorphic Features: No Hygiene: Normal Grooming: Well Kept - Behavior Psychomotor Activities: Normal Exhibits Abnormal Movement: No - Attitude and Relatedness Attitude and Relatedness: Guarded - vs no insight Eye Contact: Good - if a bit intense - Speech Quality: Unpressured Latencies: Normal Quantity: Terse - Mood Patient's Decription of Mood: "Great" - Affect Observed Affect: Tense Affect Consistent with: Dysphoria - Thought Process Patient's Thought Process: Disorganized, Impoverished Thought Content: No Passive Wish, No Suicidal Planning, No Homicidal Ideation, No Paranoid Ideation - Sensorium Experiencing Hallucinations: No, Sensorium is Clear Type of Hallucinations: Visual: No, Auditory: No, Command: No - Level of Consciousness Level of Consciousness: Alert Orientation: Yes Intact, Yes Orientated to Time, Yes Orientated to Place, Yes Orientated to Person - Impulse Control Impulse Control: Tenuous - Insight and Judgement Insight and Judgement: Impaired - Group Participation Particating in Group Activities: Yes Group Participation Comments: but fell asleep in only group attended, focus group - Medication Management Medication Management Adherence: Yes Assessment - Assessment Merits Inpatient Hospitalization: For Immediate Safety, For Stabilization, For Discharge Planning, Pending Safe DC Plan Inpatient DSM-IV Dx: Schizophrenia Clinical Impression: Mr. Bundy is a 56-year-old man with a reported history of diagnosis of schizophrenia, but lapsed from treatment for many years, nevetheless with reported stability in the community. He was hospitalized at the end of the first week of this month with report of thoughts that Torrey was doing evil things around him and that bombs were being placed in vehicles and so on, resulting in pushing his father down and other concerning behaviors for the safety of others and himself. On this occasion, we are told that he was behaving similarly in the community with signs of psychosis and inadequate self - care and so he has been readmitted for treatment in this safe setting. We will be resuming his Seroquel 200 mg at bedtime for now, but will be discussing with him alternative medications that might be more effective such as Zyprexa or Invega; Invega also giving the option of an injectable form which would be improving compliance likelihood. 2 Owen still demonstrates no insight or is guarded in his report that all is well and that circumstances leading to hsopitalization on this occasion did not justify admission, as he was only 'venting frustration', not psychotic, despite observation of pacing, self-dialoguing, menacing demeanor, and disorganized thought and behavior seen by his brother and [id number]. He is compliant with Seroquel 200 mg. We will consider with him Invega, which may improve compliance as a SANDOVAL (Sustenna). Plan - Plan Treatment Plan: Name: OWEN BUNDY Birthdate: 1960 [id number] Continue Seroquel 200 mg, but consider with Owen Invangelina. Encourage groups/ milieu. Monitor MS/safety. Return to care with [facility] once restabilized. Continued Medication Management: Consider Medication Medications: Current Medications Acetaminophen (Tylenol Tab*) 650 mg PO Q4H PRN PRN Reason: PAIN or TEMP > 101 F Al Hydrox/Mg Hydrox/Simethicone (Maalox Plus*) 30 ml PO Q4H PRN PRN Reason: INDIGESTION Device (Nicotine Mouth Piece*) 1 each INH .CARTRIDGE MIKE Multivitamins (Theragran Tab*) 1 tab PO DAILY MIKE Last Admin: 09/08/16 13:51 Dose: 1 tab Nicotine (Nicotine Inhaler*) 10 mg INH Q2H PRN PRN Reason: CRAVING Last Admin: 09/09/16 08:24 Dose: 10 mg Quetiapine Fumarate (Seroquel Tab*) 200 mg PO BEDTIME MIKE Last Admin: 09/08/16 20:42 Dose: 200 mg - Discharge Plan Discharge Plan: Outpatient Follow Up
[2016-09-09] MEDS: QUEtiapine TAB* 100 MG PO SCH (20:34)
[2016-09-10] MEDS: Nicotine Inhaler* 10 MG AMP INH PRN ×5 (04:04→15:54)
[2016-09-10] MEDS: Vitamin THERAPEUTIC TAB PO SCH (08:05)
[2016-09-10 11:58] LABS: Urine Bilirubin Negative (Negative); Urine Glucose Negative (Negative); Urine Nitrite Negative (Negative)
[2016-09-10 12:20] LABS: Benzodiazepine Urine Screen None Detected (None Detect)
[2016-09-10] MEDS: QUEtiapine TAB* 100 MG PO SCH (20:06)
[2016-09-11] MEDS: Nicotine Inhaler* 10 MG AMP INH PRN ×7 (02:00→19:41)
[2016-09-11] MEDS: Vitamin THERAPEUTIC TAB PO SCH (08:10)
--- NOTE | 2016-09-11 20:15 | PN ---
Subjective - Subjective Subjective: Owen denies any psychotic symptoms. He denies side effects from the prescribed Seroquel. He denies prior discussion with treating psychiatrist about switch to PO then IM Invega, but expresses skepticism about the idea. Per staff, he remains seclusive to self. Patient told there are two patients on the unit (did not disclose their names) who have tested positive for Influenza A and I am recommending taking Tamiflu as a prophylactic measure. I made it clear this was optional. He declined the treatment after hearing of the indications, risks, benefits and alternatives. Objective - Appearance Appearance: Healthy Appearing Dysmorphic Features: No Hygiene: Normal Grooming: Well Kept - Behavior Psychomotor Activities: Normal Exhibits Abnormal Movement: No - Attitude and Relatedness Attitude and Relatedness: Psychotically Related Eye Contact: Fair - Speech Quality: Unpressured Latencies: Normal Quantity: Terse - Mood Patient's Decription of Mood: "Okay" - Affect Observed Affect: Non-labile - Thought Process Patient's Thought Process: Impoverished Thought Content: Yes Paranoid Ideation, No Passive Wish, No Suicidal Planning, No Homicidal Ideation - Sensorium Experiencing Hallucinations: No, Sensorium is Clear - Level of Consciousness Level of Consciousness: Alert Orientation: Yes Intact - Impulse Control Impulse Control: Intact - Insight and Judgement Insight and Judgement: Impaired - Group Participation Particating in Group Activities: Yes - Medication Management Medication Management Adherence: Yes Assessment - Assessment Merits Inpatient Hospitalization: Consolidate Improvements, For Discharge Planning Inpatient DSM-IV Dx: Schizophrenia Clinical Impression: ongoing impairing psychotic symptoms. He needs continued inpatient level of care for stabilization. Plan - Plan Treatment Plan: Name: OWEN BUNDY Birthdate: 1960 [id number] Continued Medication Management: Continue Outpt Medication Medications: Current Medications Acetaminophen (Tylenol Tab*) 650 mg PO Q4H PRN PRN Reason: PAIN or TEMP > 101 F Al Hydrox/Mg Hydrox/Simethicone (Maalox Plus*) 30 ml PO Q4H PRN PRN Reason: INDIGESTION Device (Nicotine Mouth Piece*) 1 each INH .CARTRIDGE MIKE Multivitamins (Theragran Tab*) 1 tab PO DAILY MIKE Last Admin: 09/11/16 08:10 Dose: 1 tab Nicotine (Nicotine Inhaler*) 10 mg INH Q2H PRN PRN Reason: CRAVING Last Admin: 09/11/16 19:41 Dose: 10 mg Quetiapine Fumarate (Seroquel Tab*) 200 mg PO BEDTIME MIKE Last Admin: 09/10/16 20:06 Dose: 200 mg - Discharge Plan Discharge Plan: Outpatient Follow Up Outpatient Program: [facility]
[2016-09-11] MEDS: QUEtiapine TAB* 100 MG PO SCH (20:43)
[2016-09-11] MEDS ORDERED: QUEtiapine TAB* 100 MG ONE (22:58)
[2016-09-12] MEDS: Nicotine Inhaler* 10 MG AMP INH PRN ×7 (03:06→20:16)
[2016-09-12] MEDS: Vitamin THERAPEUTIC TAB PO SCH (07:29)
--- NOTE | 2016-09-12 13:10 | PN ---
Subjective - Subjective Service Type: 43292 Hosp care 15 min low complexity Subjective: The patient is calm and cooperative, states that he tolerates 200mg of Seroquel well. "Any more than that and it starts to make me feel loopy." The patient inquires whether he can leave the hospital briefly to go bowling, and then return. He shows no evidence of active psychosis at this time and denies delusional thinking. Objective - Appearance Appearance: Well Developed/Nourished Dysmorphic Features: No Hygiene: Normal Grooming: Well Kept - Behavior Psychomotor Activities: Normal Exhibits Abnormal Movement: No - Attitude and Relatedness Attitude and Relatedness: Cooperative Eye Contact: Fair - Speech Quality: Unpressured Latencies: Normal Quantity: Appropriate - Mood Patient's Decription of Mood: "Okay" - Affect Observed Affect: Good Affect Consistent with: Euthymia - Thought Process Patient's Thought Process: Coherent Thought Content: Yes Paranoid Ideation, No Passive Wish, No Suicidal Planning, No Homicidal Ideation - Sensorium Experiencing Hallucinations: No, Sensorium is Clear Type of Hallucinations: Visual: No, Auditory: No, Command: No - Level of Consciousness Level of Consciousness: Alert Orientation: Yes Intact, Yes Orientated to Time, Yes Orientated to Place, Yes Orientated to Person - Impulse Control Impulse Control: Tenuous - Insight and Judgement Insight and Judgement: Fair - Group Participation Particating in Group Activities: No - Medication Management Medication Management Adherence: Yes Assessment - Assessment Merits Inpatient Hospitalization: Consolidate Improvements, For Discharge Planning Inpatient DSM-IV Dx: Schizophrenia Clinical Impression: 56 y.o. single, white male with a history of psychotic illness readmitted several days after his most recent discharge due to psychotic and violent behavior. Plan - Plan Treatment Plan: Name: OWEN BUNDY Birthdate: 1960 [id number] Continued Medication Management: Continue Outpt Medication Medications: Current Medications Acetaminophen (Tylenol Tab*) 650 mg PO Q4H PRN PRN Reason: PAIN or TEMP > 101 F Al Hydrox/Mg Hydrox/Simethicone (Maalox Plus*) 30 ml PO Q4H PRN PRN Reason: INDIGESTION Device (Nicotine Mouth Piece*) 1 each INH .CARTRIDGE MIKE Multivitamins (Theragran Tab*) 1 tab PO DAILY MIKE Last Admin: 09/12/16 07:29 Dose: 1 tab Nicotine (Nicotine Inhaler*) 10 mg INH Q2H PRN PRN Reason: CRAVING Last Admin: 09/12/16 10:35 Dose: 10 mg Quetiapine Fumarate (Seroquel Tab*) 200 mg PO BEDTIME MIKE Last Admin: 09/11/16 20:43 Dose: 200 mg - Discharge Plan Discharge Plan: Inpatient Hospitalization
[2016-09-12] MEDS: QUEtiapine TAB* 100 MG PO SCH (20:17)
[2016-09-13] MEDS: Nicotine Inhaler* 10 MG AMP INH PRN ×7 (00:04→16:57)
[2016-09-13] MEDS: Vitamin THERAPEUTIC TAB PO SCH (07:59)
--- NOTE | 2016-09-13 16:01 | PN ---
Subjective - Subjective Service Type: 95435 Hosp care 25 min moderate complexity Subjective: Owen has agreed today to switch from Seroquel to Invega toward the goal of being on SANDOVAL Invega Sustenna. He agrees to 3 more days in hospital to ensure he tolerates Invega well. Objective - Appearance Appearance: Healthy Appearing Dysmorphic Features: No Hygiene: Normal Grooming: Fairly Well Kept - Behavior Psychomotor Activities: Normal Exhibits Abnormal Movement: No - Attitude and Relatedness Attitude and Relatedness: Cooperative Eye Contact: Good - Speech Quality: Unpressured Latencies: Normal Quantity: Appropriate - Mood Patient's Decription of Mood: "Great" - Affect Observed Affect: Fair Affect Consistent with: Euthymia - Thought Process Patient's Thought Process: Coherent, Goal Directed, Impoverished Thought Content: No Passive Wish, No Suicidal Planning, No Homicidal Ideation, No Paranoid Ideation - Sensorium Experiencing Hallucinations: No, Sensorium is Clear Type of Hallucinations: Visual: No, Auditory: No, Command: No - Level of Consciousness Level of Consciousness: Alert Orientation: Yes Intact, Yes Orientated to Time, Yes Orientated to Place, Yes Orientated to Person - Impulse Control Impulse Control: Intact - Insight and Judgement Insight and Judgement: Poor - Group Participation Particating in Group Activities: Yes Group Participation Comments: but few - Medication Management Medication Management Adherence: Yes Assessment - Assessment Merits Inpatient Hospitalization: For Immediate Safety, For Stabilization, To Initiate Treatment, For Discharge Planning Inpatient DSM-IV Dx: Schizophrenia Clinical Impression: Mr. Bundy is a 56-year-old man with a reported history of diagnosis of schizophrenia, but lapsed from treatment for many years, nevetheless with reported stability in the community. He was hospitalized at the end of the first week of this month with report of thoughts that Torrey was doing evil things around him and that bombs were being placed in vehicles and so on, resulting in pushing his father down and other concerning behaviors for the safety of others and himself. On this occasion, we are told that he was behaving similarly in the community with signs of psychosis and inadequate self - care and so he has been readmitted for treatment in this safe setting. We will be resuming his Seroquel 200 mg at bedtime for now, but will be discussing with him alternative medications that might be more effective such as Zyprexa or Invega; Invega also giving the option of an injectable form which would be improving compliance likelihood. 2 Owen still demonstrates no insight or is guarded in his report that all is well and that circumstances leading to hsopitalization on this occasion did not justify admission, as he was only 'venting frustration', not psychotic, despite observation of pacing, self-dialoguing, menacing demeanor, and disorganized thought and behavior seen by his brother and [id number]. He is compliant with Seroquel 200 mg. We will consider with him Invega, which may improve compliance as a SANDOVAL (Sustenna). 09.13.16 Med compliant, attending a few groups, agreeable to Invega Sustenna. Still showing signs of impoverished thought and poor insight, may be stable baseline given history of limited functionality. Plan - Plan Treatment Plan: Name: OWEN BUNDY Birthdate: 1960 [id number] Decrease Seroquel to a00 mg, start Invega. Encourage groups/milieu. Monitor MS /safety. Return to care with [facility] once restabilized. Continued Medication Management: Start Medication Medications: Current Medications Acetaminophen (Tylenol Tab*) 650 mg PO Q4H PRN PRN Reason: PAIN or TEMP > 101 F Al Hydrox/Mg Hydrox/Simethicone (Maalox Plus*) 30 ml PO Q4H PRN PRN Reason: INDIGESTION Device (Nicotine Mouth Piece*) 1 each INH .CARTRIDGE MIKE Multivitamins (Theragran Tab*) 1 tab PO DAILY MIKE Last Admin: 09/13/16 07:59 Dose: 1 tab Nicotine (Nicotine Inhaler*) 10 mg INH Q2H PRN PRN Reason: CRAVING Last Admin: 09/13/16 14:57 Dose: 10 mg Quetiapine Fumarate (Seroquel Tab*) 200 mg PO BEDTIME MIKE Last Admin: 09/12/16 20:17 Dose: 200 mg - Discharge Plan Discharge Plan: Outpatient Follow Up Outpatient Program: [facility]
[2016-09-13] MEDS ORDERED: Paliperidone TAB* 3 MG TAB PO ONE (16:02)
[2016-09-13] MEDS: QUEtiapine TAB* 100 MG PO SCH (20:44)
[2016-09-14] MEDS: Nicotine Inhaler* 10 MG AMP INH PRN ×4 (07:18→16:31)
[2016-09-14] MEDS: Vitamin THERAPEUTIC TAB PO SCH (08:26)
[2016-09-14] MEDS ORDERED: Paliperidone TAB* 6 MG PO SCH (09:00)
--- NOTE | 2016-09-14 17:00 | PN ---
Subjective - Subjective Service Type: 88720 Hosp care 15 min low complexity Subjective: Owen reports remission of disorganized thought and behavior, is agreeable with transition to SANDOVAL. He has no physical complaints. Objective - Appearance Appearance: Healthy Appearing Dysmorphic Features: No Hygiene: Normal Grooming: Well Kept - Behavior Psychomotor Activities: Normal Exhibits Abnormal Movement: No - Attitude and Relatedness Attitude and Relatedness: Cooperative Eye Contact: Good - Speech Quality: Unpressured Latencies: Normal Quantity: Terse - Mood Patient's Decription of Mood: "Great" - Affect Observed Affect: Constricted Affect Consistent with: Euthymia - Thought Process Patient's Thought Process: Coherent, Goal Directed Thought Content: No Passive Wish, No Suicidal Planning, No Homicidal Ideation, No Paranoid Ideation - Sensorium Experiencing Hallucinations: No, Sensorium is Clear Type of Hallucinations: Visual: No, Auditory: No, Command: No - Level of Consciousness Level of Consciousness: Alert Orientation: Yes Intact, Yes Orientated to Time, Yes Orientated to Place, Yes Orientated to Person - Impulse Control Impulse Control: Intact - Insight and Judgement Insight and Judgement: Poor - Group Participation Particating in Group Activities: Yes - Medication Management Medication Management Adherence: Yes Assessment - Assessment Merits Inpatient Hospitalization: For Stabilization, For Discharge Planning Inpatient DSM-IV Dx: Schizophrenia Clinical Impression: Mr. Bundy is a 56-year-old man with a reported history of diagnosis of schizophrenia, but lapsed from treatment for many years, nevdeneless with reported stability in the community. He was hospitalized at the end of the first week of this month with report of thoughts that Torrey was doing evil things around him and that bombs were being placed in vehicles and so on, resulting in pushing his father down and other concerning behaviors for the safety of others and himself. On this occasion, we are told that he was behaving similarly in the community with signs of psychosis and inadequate self - care and so he has been readmitted for treatment in this safe setting. We will be resuming his Seroquel 200 mg at bedtime for now, but will be discussing with him alternative medications that might be more effective such as Zyprexa or Invega; Invega also giving the option of an injectable form which would be improving compliance likelihood. 2.17.17 Owen still demonstrates no insight or is guarded in his report that all is well and that circumstances leading to hsopitalization on this occasion did not justify admission, as he was only 'venting frustration', not psychotic, despite observation of pacing, self-dialoguing, menacing demeanor, and disorganized thought and behavior seen by his brother and [id number]. He is compliant with Seroquel 200 mg. We will consider with him Invega, which may improve compliance as a SANDOVAL (Sustenna). 2..17 Med compliant, attending a few groups, agreeable to Invega Sustenna. Still showing signs of impoverished thought and poor insight, may be stable baseline given history of limited functionality. 2..17 Med compliant, attending groups, no complaints. Plan - Plan Treatment Plan: Name: OWEN BUNDY Birthdate: 1960 [id number] Increase Invega to 9 mg daily, plan on Sustenna Monday if no report of adverse reaction to oral dosing. Encourage groups/milieu. Monitor MS/safety. Return to care with [facility] once restabilized. Medications: Current Medications Acetaminophen (Tylenol Tab*) 650 mg PO Q4H PRN PRN Reason: PAIN or TEMP > 101 F Al Hydrox/Mg Hydrox/Simethicone (Maalox Plus*) 30 ml PO Q4H PRN PRN Reason: INDIGESTION Device (Nicotine Mouth Piece*) 1 each INH .CARTRIDGE [facility] Multivitamins (Theragran Tab*) 1 tab PO DAILY [facility] Last Admin: 09/14/16 08:26 Dose: 1 tab Nicotine (Nicotine Inhaler*) 10 mg INH Q2H PRN PRN Reason: CRAVING Last Admin: 09/14/16 16:31 Dose: 10 mg Paliperidone (Invega Tab*) 6 mg PO DAILY [facility] Last Admin: 09/14/16 08:26 Dose: 6 mg Quetiapine Fumarate (Seroquel Tab*) 100 mg PO BEDTIME [facility] Last Admin: 09/13/16 20:44 Dose: 100 mg - Discharge Plan Discharge Plan: Outpatient Follow Up Outpatient Program: [facility]
[2016-09-14] MEDS: QUEtiapine TAB* 100 MG PO SCH (20:10)
[2016-09-15] MEDS: Nicotine Inhaler* 10 MG AMP INH PRN ×8 (01:22→23:47)
[2016-09-15] MEDS: Paliperidone TAB* 9 MG PO SCH (08:17)
[2016-09-15] MEDS: Vitamin THERAPEUTIC TAB PO SCH (08:17)
[2016-09-15] MEDS ORDERED: Paliperidone SUSTENNA* 234 MG/1.5 ML IM ONE (12:28)
[2016-09-15] MEDS: QUEtiapine TAB* 100 MG PO SCH (20:22)
[2016-09-16] MEDS: Nicotine Inhaler* 10 MG AMP INH PRN ×4 (04:24→20:27)
[2016-09-16] MEDS: Paliperidone TAB* 9 MG PO SCH (08:12)
[2016-09-16] MEDS: Vitamin THERAPEUTIC TAB PO SCH (08:13)
--- NOTE | 2016-09-16 11:45 | PN ---
[facility]: Group Therapy Note - Service Type Service Type: 74698 Group Psychotherapy - Cognitive Behavioral Group Therapy ( CBT):Patient was attentive and participatory in CBT programming this morning, and remained in good behavioral control. Patient expressed positive insights regarding relevant treatment interventions and goals.
--- NOTE | 2016-09-16 17:01 | PN ---
Subjective - Subjective Service Type: 85493 Hosp care 15 min low complexity Subjective: Owen walked away from interview today after I told him he would not be discharged today, but likely early next week. He said he wanted to go bowling. Objective - Appearance Appearance: Healthy Appearing Dysmorphic Features: No Hygiene: Normal Grooming: Well Kept - Behavior Psychomotor Activities: Normal Exhibits Abnormal Movement: No - Attitude and Relatedness Attitude and Relatedness: Dismissive Eye Contact: Fair - Speech Quality: Unpressured Latencies: Normal Quantity: Terse - Thought Process Patient's Thought Process: Coherent, Goal Directed - Level of Consciousness Level of Consciousness: Alert - Impulse Control Impulse Control: Tenuous - Insight and Judgement Insight and Judgement: Poor - Group Participation Particating in Group Activities: Yes - Medication Management Medication Management Adherence: Yes Assessment - Assessment Merits Inpatient Hospitalization: For Stabilization, Consolidate Improvements, For Discharge Planning Inpatient DSM-IV Dx: Schizophrenia Clinical Impression: Mr. Bundy is a 56-year-old man with a reported history of diagnosis of schizophrenia, but lapsed from treatment for many years, nevetheless with reported stability in the community. He was hospitalized at the end of the first week of this month with report of thoughts that Torrey was doing evil things around him and that bombs were being placed in vehicles and so on, resulting in pushing his father down and other concerning behaviors for the safety of others and himself. On this occasion, we are told that he was behaving similarly in the community with signs of psychosis and inadequate self - care and so he has been readmitted for treatment in this safe setting. We will be resuming his Seroquel 200 mg at bedtime for now, but will be discussing with him alternative medications that might be more effective such as Zyprexa or Invega; Invega also giving the option of an injectable form which would be improving compliance likelihood. 2.17.17 Owen still demonstrates no insight or is guarded in his report that all is well and that circumstances leading to hsopitalization on this occasion did not justify admission, as he was only 'venting frustration', not psychotic, despite observation of pacing, self-dialoguing, menacing demeanor, and disorganized thought and behavior seen by his brother and [id number]. He is compliant with Seroquel 200 mg. We will consider with him Invega, which may improve compliance as a SANDOVAL (Sustenna). 2..17 Med compliant, attending a few groups, agreeable to Invega Sustenna. Still showing signs of impoverished thought and poor insight, may be stable baseline given history of limited functionality. 2..17 Med compliant, attending groups, no complaints. 2..17 Today walked away from interview in frustration at not being immediately discharged. Otherwise, has been in good behavioral control, med compliant, attending groups. Plan - Plan Treatment Plan: Name: OWEN BUNDY Birthdate: 1960 [id number] Decrease Invega to 6 mg daily, plan on Sustenna booster Monday or Monday, discharge following booster if remission of psychosis holds. Encourage groups/ milieu. Monitor MS/safety. Return to care with [facility] once restabilized. Medications: Current Medications Acetaminophen (Tylenol Tab*) 650 mg PO Q4H PRN PRN Reason: PAIN or TEMP > 101 F Al Hydrox/Mg Hydrox/Simethicone (Maalox Plus*) 30 ml PO Q4H PRN PRN Reason: INDIGESTION Device (Nicotine Mouth Piece*) 1 each INH .[facility] Multivitamins (Theragran Tab*) 1 tab PO DAILY [facility] Last Admin: 09/16/16 08:13 Dose: 1 tab Nicotine (Nicotine Inhaler*) 10 mg INH Q2H PRN PRN Reason: CRAVING Last Admin: 09/16/16 15:57 Dose: 10 mg Paliperidone (Invega Tab*) 9 mg PO DAILY [facility] Last Admin: 09/16/16 08:12 Dose: 9 mg Quetiapine Fumarate (Seroquel Tab*) 100 mg PO BEDTIME [facility] Last Admin: 09/15/16 20:22 Dose: 100 mg - Discharge Plan Discharge Plan: Outpatient Follow Up Outpatient Program: [facility]
[2016-09-16] MEDS: QUEtiapine TAB* 100 MG PO SCH (20:27)
[2016-09-17] MEDS: Nicotine Inhaler* 10 MG AMP INH PRN ×6 (01:11→17:26)
[2016-09-17] MEDS: Vitamin THERAPEUTIC TAB PO SCH (08:09)
[2016-09-17] MEDS: Paliperidone TAB* 6 MG PO SCH (08:09)
[2016-09-17] MEDS: QUEtiapine TAB* 100 MG PO SCH (20:31)
[2016-09-18] MEDS: Nicotine Inhaler* 10 MG AMP INH PRN ×6 (01:35→15:17)
[2016-09-18] MEDS: Paliperidone TAB* 6 MG PO SCH (08:55)
[2016-09-18] MEDS: Vitamin THERAPEUTIC TAB PO SCH (08:55)
[2016-09-18] MEDS: QUEtiapine TAB* 100 MG PO SCH (20:22)
[2016-09-19] MEDS: Nicotine Inhaler* 10 MG AMP INH PRN ×7 (06:02→21:24)
[2016-09-19] MEDS: Vitamin THERAPEUTIC TAB PO SCH (08:22)
[2016-09-19] MEDS: Paliperidone TAB* 6 MG PO SCH (08:22)
--- NOTE | 2016-09-19 16:55 | PN ---
Subjective - Subjective Service Type: 55078 Hosp care 25 min moderate complexity Subjective: Owen reports doing well and feeling ready for Invega Sustenna booster and discharge. Objective - Appearance Appearance: Well Developed/Nourished, Healthy Appearing Dysmorphic Features: No Hygiene: Normal Grooming: Well Kept - Behavior Psychomotor Activities: Normal Exhibits Abnormal Movement: No - Attitude and Relatedness Attitude and Relatedness: Cooperative Eye Contact: Good - Speech Quality: Unpressured Latencies: Normal Quantity: Appropriate - Mood Patient's Decription of Mood: "Great" - Affect Observed Affect: Good Affect Consistent with: Euthymia - Thought Process Patient's Thought Process: Coherent, Goal Directed Thought Content: No Passive Wish, No Suicidal Planning, No Homicidal Ideation, No Paranoid Ideation - Sensorium Experiencing Hallucinations: No, Sensorium is Clear Type of Hallucinations: Visual: No, Auditory: No, Command: No - Level of Consciousness Level of Consciousness: Alert Orientation: Yes Intact, Yes Orientated to Time, Yes Orientated to Place, Yes Orientated to Person - Impulse Control Impulse Control: Intact - Insight and Judgement Insight and Judgement: Fair - Group Participation Particating in Group Activities: Yes - Medication Management Medication Management Adherence: Yes Assessment - Assessment Merits Inpatient Hospitalization: Consolidate Improvements, For Discharge Planning Inpatient DSM-IV Dx: Schizophrenia Clinical Impression: Mr. Bundy is a 56-year-old man with a reported history of diagnosis of schizophrenia, but lapsed from treatment for many years, nevetheless with reported stability in the community. He was hospitalized at the end of the first week of this month with report of thoughts that Torrey was doing evil things around him and that bombs were being placed in vehicles and so on, resulting in pushing his father down and other concerning behaviors for the safety of others and himself. On this occasion, we are told that he was behaving similarly in the community with signs of psychosis and inadequate self - care and so he has been readmitted for treatment in this safe setting. We will be resuming his Seroquel 200 mg at bedtime for now, but will be discussing with him alternative medications that might be more effective such as Zyprexa or Invega; Invega also giving the option of an injectable form which would be improving compliance likelihood. 2.17.17 Owen still demonstrates no insight or is guarded in his report that all is well and that circumstances leading to hsopitalization on this occasion did not justify admission, as he was only 'venting frustration', not psychotic, despite observation of pacing, self-dialoguing, menacing demeanor, and disorganized thought and behavior seen by his brother and [id number]. He is compliant with Seroquel 200 mg. We will consider with him Invega, which may improve compliance as a SANDOVAL (Sustenna). 2.21.17 Med compliant, attending a few groups, agreeable to Invega Sustenna. Still showing signs of impoverished thought and poor insight, may be stable baseline given history of limited functionality. 2..17 Med compliant, attending groups, no complaints. 2.24.17 Today walked away from interview in frustration at not being immediately discharged. Otherwise, has been in good behavioral control, med compliant, attending groups. 2.27.17 Calm and cooperative today with no complaints. Agreeable to plan to discharge tomorrow to follow up with [facility]. Plan - Plan Treatment Plan: Name: OWEN BUNDY Birthdate: 1960 [id number] Sustenna booster tomorrow, discharge following booster if family concurs. Encourage groups/milieu. Monitor MS/safety. Return to care with [facility] once restabilized. Medications: Current Medications Acetaminophen (Tylenol Tab*) 650 mg PO Q4H PRN PRN Reason: PAIN or TEMP > 101 F Al Hydrox/Mg Hydrox/Simethicone (Maalox Plus*) 30 ml PO Q4H PRN PRN Reason: INDIGESTION Device (Nicotine Mouth Piece*) 1 each INH [facility] Multivitamins (Theragran Tab*) 1 tab PO DAILY [facility] Last Admin: 09/19/16 08:22 Dose: 1 tab Nicotine (Nicotine Inhaler*) 10 mg INH Q2H PRN PRN Reason: CRAVING Last Admin: 09/19/16 16:15 Dose: 10 mg Paliperidone (Invega Tab*) 6 mg PO DAILY [facility] Last Admin: 09/19/16 08:22 Dose: 6 mg Quetiapine Fumarate (Seroquel Tab*) 100 mg PO BEDTIME [facility] Last Admin: 09/18/16 20:22 Dose: 100 mg - Discharge Plan Discharge Plan: Outpatient Follow Up
[2016-09-19] MEDS: QUEtiapine TAB* 100 MG PO SCH (20:09)
[2016-09-20] MEDS: Nicotine Inhaler* 10 MG AMP INH PRN ×3 (04:38→11:11)
[2016-09-20] MEDS ORDERED: Paliperidone SUSTENNA* 156 MG/1 ML IM ONE (08:00)
[2016-09-20 08:11] VITALS: BP 114/66
[2016-09-20] MEDS: Vitamin THERAPEUTIC TAB PO SCH (08:37)
[2016-09-20] MEDS: Paliperidone TAB* 6 MG PO SCH (08:37)
[2016-09-20 08:50] LABS: HDL Cholesterol 82.1 mg/dL
--- NOTE | 2016-09-20 13:17 | DS ---
Subjective - Subjective Service Types: 30139 Hosp AR Day Mgmt simple under 30 min Discharge Date: 09/20/16 Subjective: Pedro reports today feeling safe and ready for discharge. He continues to report sustained remission of psychosis, and sustained remission of dangerous intent or plan. He is pleasant and collaborative. He does not present with odd demands of going bowling and so on as he had done 1 week ago. He states clearly and emphatically that he feels better and attributes this to the Invega , which he agrees to keep taking. Objective - Appearance Appearance: Healthy Appearing Dysmorphic Features: No Hygiene: Normal Grooming: Well Kept - Behavior Psychomotor Activities: Normal Exhibits Abnormal Movement: No - Attitude and Relatedness Attitude and Relatedness: Well Related Eye Contact: Good - Speech Quality: Unpressured Latencies: Normal Quantity: Appropriate - Mood Patient's Decription of Mood: "Great" - Affect Observed Affect: Good Affect Consistent with: Euthymia - Thought Process Patient's Thought Process: Coherent, Goal Directed Thought Content: No Passive Wish, No Suicidal Planning, No Homicidal Ideation, No Paranoid Ideation - Sensorium Experiencing Hallucinations: No, Sensorium is Clear Type of Hallucinations: Visual: No, Auditory: No, Command: No - Level of Consciousness Level of Consciousness: Alert Orientation: Yes Intact, Yes Orientated to Time, Yes Orientated to Place, Yes Orientated to Person - Impulse Control Impulse Control: Intact - Insight and Judgement Insight and Judgement: Fair - Group Participation Particating in Group Activities: Yes Group Participation Comments: but few - Medication Management Medication Management Adherence: Yes Treatment Course & Assessment Clinical Course & Impression: Mr. Garcia is a 56-year-old man with a reported history of diagnosis of schizophrenia, but lapsed from treatment for many years, nevetheless with reported stability in the community until the past few months. He was hospitalized at the end of the first week of this month with report of thoughts that Torrey was doing evil things around him and that bombs were being placed in vehicles and so on, resulting in pushing his father down and other behaviorsf concerning for the safety of others and himself. On this occasion, we are told that he was behaving similarly in the community with signs of psychosis and inadequate self- care and so he has been readmitted for treatment in this safe setting. We will be resuming his Seroquel 200 mg at bedtime for now, but will be discussing with him alternative medications that might be more effective such as Zyprexa or Invega; Invega also giving the option of an injectable form which would be improving compliance likelihood. 2.17.17 Pedro still demonstrates no insight or is guarded in his report that all is well and that circumstances leading to hospitalization on this occasion did not justify admission, as he was only 'venting frustration', not psychotic, despite observation of pacing, self-dialoguing, menacing demeanor, and disorganized thought and behavior seen by his brother and [id number]. He is compliant now in hospital with Seroquel 200 mg, though he had immediately stopped taking it after his discharge from his last hospitalization here. We will consider with him Invega, which may improve compliance as a SANDOVAL (Sustenna). 2.21.17 Med compliant, attending a few groups, agreeable to Invega Sustenna. Still showing signs of impoverished thought and poor insight, may be stable baseline given history of limited functionality. 2.22.17 Med compliant, attending groups, no complaints. 2.23.17 Invega Sustenna 234 mg IM given. 2.24.17 Today walked away from interview in frustration at not being immediately discharged. Otherwise, has been in good behavioral control, med compliant, attending groups. 2.27.17 Calm and cooperative today with no complaints. Agreeable to plan to discharge tomorrow to follow up with [facility]. 2.28.17 Received Invega Sustenna 156 mg IM. Cleared for discharge. Pedro denies any subjective experience of psychosis, and he has shown no signs of psychosis for several days at least. He denies any dangerous intent or plan. He reports 'great' mood as he has for days now. He has been med, meal and group compliant. He has been pleasant and collaborative. He is assessed as at no acutely increased risk of harm to self or others and capable of adequate self-care to avoid harm. Pedro says he understands that he has a mental illness that will require treatment, and he agrees to the current treatment, having reviewed with me the risks of side effects and stating clearly that he is accepting of these low probability risks given the high probability benefits, which he says he recognizes already in the remission of his psychosis. He voices commitment to follow-up care at [facility]. His father and sister- in-law, who have visited with him here on the unit, both report that they have no concern for his safety or for the safety of others if he is discharged today. They both would like him to discharge today. Merits Inpatient Hospitalization: No Clear for Discharge: Adequate Clinical Respons, Acceptable Safety Profile, Low Utility of Inpt Care Inpatient DSM-IV Dx: Schizophrenia - Parker III Medical Illness: None - Parker IV Stressors: limited finances Family: parents and siblings all supportive of patient and supportive of discharge Primary Support Group: family - Parker V [id number]: 65 Estimate of Highest-Past Year: 65 Discharge Planning - Discharge Planning Discharge Plan: Outpatient Follow Up Outpatient Program: [facility] Recommendations for Continuing Care: Medication Management, Psychotherapy, Routine Metabolic Monitoring, Primary Care Followup Medications: *Multivitamins (Theragran Tab*) 1 tab PO DAILY [facility] Last Admin: 09/20/16 08:37 Dose: 1 tab Invega Sustenna 117 mg qmonth IM, next dose due 3., to be prescribed and given at [facility] *Invega 3 mg po daily x 7 days to complete taper off oral doses. [Quetiapine Fumarate (Seroquel Tab*) 100 mg PO BEDTIME [facility] Last Admin: 09/19/16 20:09 Dose: 100 mg] replace with: *quetiapine fumarate 50 mg po BEDTIME prn insomnia, may repeat x 1, #10, 0 refills, patient instructed to use only if necessary in transition to being only on Invega Sustenna, and to call me or [facility] if insomnia occurs and persists for 2 days or more. Pedro requires 2 antipsychotic medications now only to complete taper off Seroquel, and plan is to be on only 1 antipsychotic medication after stopping Seroquel. *E-scripts sent in to [facility] [address] in [place], [place]. Pedro declines nicotine replacement or other stop smoking aid. He is contemplating stopping smoking, but does not want to do it today. Discharge Planning: Prescriptions provided for discharge [x] Yes [] No Follow up care details as per social work arrangements. Patient response to discharge plan: [x] eager for discharge [x] agreeable with discharge plan [] ambivalent about discharge [] disagrees with discharge today
== END 2016-09-20 14:10 | disposition home or self-care (01) | DRG 885 ==
LOC: ED 01:37 → BSU 05:06
PROVIDERS: ADMIT Psychiatry & Neurology Psychiatry; ATTEND Psychiatry & Neurology Psychiatry
DX: F20.9 Schizophrenia, unspecified (principal); Z91.14 Patient's other noncompliance with medication regimen
CPT/HCPCS: 36415; 80053; 80061; 80307; 80320; 80329; 81003; 84443; 85025; 90853; 99222; 99231; 99232; 99238; 99406; A9270-GY; G0480; J1200; J1630; J2060; J2426